=== PATIENT | female | born 1990 | race Caucasian/White ===

== ENCOUNTER → 2017-06-03 | Outpatient (CLI) | payer OTHER ==
[~2017-06-03] MED LIST: DEX1 PO; LABE100T28 PO; NORE0.3514 PO; RANI-324 PO; [UNRECOGNIZED DRUG - CODE] TP
--- NOTE | 2017-06-03 16:19 | EKG ---
FACILITY: [facility] - [place] PATIENT NAME: NATANAEL SUAREZ : [id number] MR: [id number] V: [id number] EXAM DATE: ORDERING PHYSICIAN: AMIE DÍAZ TECHNOLOGIST: JOSE REAGAN Test Reason : ELEVATED B/P Blood Pressure : / mmHG Vent. Rate : 075 BPM Atrial Rate : 075 BPM P-R Int : 122 ms QRS Dur : 080 ms QT Int : 366 ms P-R-T Axes : 017 086 044 degrees QTc Int : 408 ms Normal sinus rhythm with sinus arrhythmia Normal ECG No previous ECGs available Referred By: Confirmed By:
== END ==
LOC: RESP 09:23
PROVIDERS: ATTEND Emergency Medicine
DX: Z02.9 Encounter for administrative examinations, unspecified (principal)

== ENCOUNTER → 2017-06-07 | Outpatient (CLI) | payer OTHER ==
[~2017-06-07] MED LIST changes: -RANI-324 PO; +RANI-366 PO
== END ==
LOC: LAB 07:51
PROVIDERS: ATTEND Emergency Medicine
DX: D75.1 Secondary polycythemia (principal); R03.0 Elevated blood-pressure reading, without diagnosis of hypertension; I10 Essential (primary) hypertension
CPT/HCPCS: 36415; 82533; 82728; 83540; 83550; 84443

== ENCOUNTER → 2017-06-15 | Outpatient (CLI) | payer OTHER | LOC: LAB 12:10 | PROVIDERS: ATTEND Emergency Medicine | DX: R03.0 Elevated blood-pressure reading, without diagnosis of hypertension (principal) | CPT/HCPCS: 36415; 83835 ==

== ENCOUNTER → 2017-07-15 | Outpatient (CLI) | payer OTHER ==
--- NOTE | 2017-07-15 10:13 | RADIOLOGY IMAGING REPORT ---
FACILITY: [facility] - [place] PATIENT NAME: Teresa Orourke : 1990 MR: [id number] V: [id number] EXAM DATE: ORDERING PHYSICIAN: AMIE DÍAZ TECHNOLOGIST: Location: [facility] - [place] Patient: Teresa Orourke : 1990 Visit/Account:[id number] Date of Sevice: 07/15/2017 CHEST, 2 Views HISTORY: Hypertension COMPARISON: None available FINDINGS: Heart size is normal. Normal size thoracic aorta. Mediastinum and herman are normal. Lungs are clear of infiltrate and atelectasis. There is no pneumothorax or pleural effusion. Bones are normal. IMPRESSION: Normal Report Dictated By: Gia Carlisle MD at 07/15/2017 9:49 AM Report E-Signed By: Gia Carlisle MD at 07/15/2017 9:49 AM WSN:[email or web address]
--- NOTE | 2017-07-15 11:09 | RADIOLOGY IMAGING REPORT ---
FACILITY: [facility] - [place] PATIENT NAME: Teresa Orourke : 1990 MR: [id number] V: [id number] EXAM DATE: ORDERING PHYSICIAN: AMIE DÍAZ TECHNOLOGIST: Location: [facility] - [place] Patient: Teresa Orourke : 1990 Visit/Account:[id number] Date of Sevice: 07/15/2017 EXAMINATION: Ultrasound renal complete and renal artery Doppler exam HISTORY: Hypertension COMPARISON: None. FINDINGS: KIDNEYS: Right kidney: 10.7 x 3.7 x 4.9 cm, normal parenchymal thickness and echogenicity. Left kidney: 10.2 x 3.9 x 4.5 cm, normal parenchymal thickness and echogenicity. Uniform and symmetric blood flow in each kidney by Doppler ultrasound. Hydronephrosis: None. Abdominal aorta and IVC: Patent by Doppler ultrasound. RENAL ARTERY DOPPLER EXAM: Plaque: None. Waveforms: Normal. Renal veins: Patent bilaterally with appropriate flow on color Doppler ultrasound. Peak systolic velocities are listed below in centimeters/second: Abdominal aorta: 152 Right renal artery: Proximal: 150 Mid: 157 Distal: 144 Renal/aortic ratio: 0.95, (greater than 3.5 is abnormal) Arcuate artery resistive indices: Less than 0.7 Left renal artery: Proximal: 81 Mid: 67 Distal: 101 Renal/aortic ratio: 0.66, (greater than 3.5 is abnormal) Arcuate artery resistive indices: Less than 0.6 IMPRESSION: Normal sonographic appearance of the kidneys and normal renal Dopplers. Report Dictated By: Mahendra Douglas at 07/15/2017 10:55 AM Report E-Signed By: Mahendra Douglas at 07/15/2017 11:05 AM WSN:[email or web address]
== END ==
LOC: US 02:36
PROVIDERS: ATTEND Emergency Medicine
DX: I10 Essential (primary) hypertension (principal)
CPT/HCPCS: 71046; 93975

== ENCOUNTER → 2017-08-31 | Outpatient (CLI) | payer OTHER ==
[~2017-08-31] MED LIST changes: +CEPH500T7 PO; +LABE100T2 PO; -LABE100T28 PO; +TERB250T74 PO
== END ==
LOC: LAB 16:18
PROVIDERS: ATTEND Emergency Medicine
DX: B35.1 Tinea unguium (principal)
CPT/HCPCS: 87252

== ENCOUNTER → 2017-10-20 | Outpatient (CLI) | payer OTHER | LOC: LAB 11:23 | PROVIDERS: ATTEND Emergency Medicine | DX: Z79.899 Other long term (current) drug therapy (principal) | CPT/HCPCS: 36415; 82040; 82247; 82248; 84075; 84155; 84450; 84460 ==